=== PATIENT | male | born 1960 | race Caucasian/White ===

== ENCOUNTER → 2025-06-11 08:36 | Outpatient (REF) | payer OTHER, SELFPAY | LOC: RCS 08:36 | PROVIDERS: ATTENDING PHYSICIAN Internal Medicine Cardiovascular Disease; FAMILY PHYSICIAN Family Medicine | DX: I10 Essential (primary) hypertension (principal); Z82.49 Family history of ischemic heart disease and other diseases of the circulatory system; E78.2 Mixed hyperlipidemia | CPT/HCPCS: 93306 ==